=== PATIENT | female | born 1995 | race Caucasian/White ===

== ENCOUNTER → 2019-04-30 | Outpatient (CLI) | payer OTHER ==
--- NOTE | 2019-04-30 12:46 | 2DMMODE ---
[place] [address] 2 D/M-MODE ECHOCARDIOGRAM Name: ARMANI MCCAULEY Room: [facility]#: [id number] Admission: 04/30/19 Attend Phys: Ileana Alvarado, Discharge: Date of : 89 Date of Service: 04/30/19 1246 Report #: [id number] THIS REPORT FOR: //name// APPROVED REPORT Study performed: 04/30/2019 11:10:56 EXAM: Comprehensive 2D, Doppler, and color-flow Echocardiogram Patient Location: Out-Patient BSA: 1.60 HR: 84 bpm BP: 96/58 mmHg Other Information Study Quality: Good Indications Dyspnea Palpitations Chest Pain 2D Dimensions IVSd: 6.78 (7-11mm) LVOT Diam: 19.65 (18-24mm) LVDd: 38.86 mm PWd: 6.78 (7-11mm) Ascending Ao: 19.89 (22-36mm) LVDs: 26.28 (25-40mm) Aortic Root: 22.21 mm Volumes Left Atrial Volume (Systole) LA ESV Index: 12.90 mL/m2 Aortic Valve AoV Peak Brando.: 0.97 m/s AO Peak Gr.: 3.73 mmHg LVOT Max P.91 mmHg AO Mean Gr.: 2.06 mmHg LVOT Mean P.54 mmHg LVOT Max V: 0.85 m/s AO V2 VTI: 16.66 cm LVOT Mean V: 0.57 m/s COLLIN (VTI): 3.13 cm2 LVOT V1 VTI: 17.18 cm Mitral Valve E/A Ratio: 1.21 MV Decel. Time: 190.62 ms MV E Max Brando.: 0.71 m/[place] [address] 2 D/M-MODE ECHOCARDIOGRAM Name: ARMANI MCCAULEY Room: [facility]#: [id number] Admission: 04/30/19 Attend Phys: Ileana Alvarado, Discharge: Date of : 89 Date of Service: 04/30/19 1246 Report #: [id number] MV PHT: 55.28 ms MVA (PHT): 3.98 cm2 TDI E/Lateral E': 5.07 E/Medial E': 5.07 Medial E' Brando.: 0.14 m/s Lateral E' Brando.: 0.14 m/s Pulmonary Valve PV Peak Brando.: 0.81 m/s PV Peak Gr.: 2.62 mmHg Left Ventricle The left ventricle is normal size. There is normal LV segmental wall motion. There is normal left ventricular wall thickness. Left ventricular systolic function is normal. The left ventricular ejection fraction is within the normal range. LVEF is 55-60%. The left ventricular diastolic function is normal. Right Ventricle The right ventricle is normal size. The right ventricular systolic function is normal. Atria The left atrium size is normal. The right atrium size is normal. Aortic Valve The aortic valve is normal in structure. No aortic regurgitation is present. There is no aortic valvular stenosis. Mitral Valve The mitral valve is normal in structure. There is no mitral valve regurgitation noted. No evidence of mitral valve stenosis. Tricuspid Valve The tricuspid valve is normal in structure. Trace tricuspid valve regurgitation noted. Pulmonic Valve The pulmonary valve is normal in structure. Mild pulmonic regurgitation. Great Vessels The aortic root is normal in size. IVC is normal in size and collapses >50% [place] [address] 2 D/M-MODE ECHOCARDIOGRAM Name: ELHAM MCCAULEYOli TORIBIO Room: [facility]#: [id number] Admission: 04/30/19 Attend Phys: Ileana Alvarado, Discharge: Date of : 89 Date of Service: 04/30/19 1246 Report #: [id number] Pericardium There is no pericardial effusion. <Conclusion> Left ventricular systolic function is normal. The left ventricular ejection fraction is within the normal range. <ELECTRONICALLY SIGNED> By: Tarun Vicente MD, FACC 04/30/19 1246 1246 1246 Tarun Vicente MD, [facility] /INF
== END ==
LOC: M.CRD 11:00
DX: I37.1 Nonrheumatic pulmonary valve insufficiency (principal)